=== PATIENT | male | born 1935 | race Caucasian/White ===

== ENCOUNTER 2023-09-08 10:09 | Outpatient (CLI) | payer MEDICARE, BC | END 2023-09-08 10:10 | disposition home or self-care (01) | LOC: RAD 10:09 | PROVIDERS: ATTEND Otolaryngology Plastic Surgery within the Head & Neck | DX: R13.10 Dysphagia, unspecified (principal); J38.00 Paralysis of vocal cords and larynx, unspecified | CPT/HCPCS: 74230 ==